=== PATIENT | female | born 1975 | race Caucasian/White ===

== ENCOUNTER 2023-01-09 16:53 | Outpatient (CLI) | payer OTHER, SELFPAY ==
--- NOTE | 2023-01-09 17:01 | XRR_ITS ---
PROCEDURE INFORMATION: Exam: XR Right Knee Exam date and time: 01/09/2023 5:08 PM Age: 47 years old Clinical indication: Pain; Knee; Right; Additional info: Right knee pain TECHNIQUE: Imaging protocol: Radiologic exam of the right knee. Views: 3 views. COMPARISON: No relevant prior studies available. FINDINGS: Bones/joints: No acute fracture, subluxation or dislocation. Mild narrowing of the medial compartment of the right knee. Soft tissues: Normal. XR/XR knee RT 3V* [id number] IMPRESSION: 1. No acute findings. 2. Mild narrowing of the medial compartment of the right knee.
== END 2023-01-09 16:54 | disposition home or self-care (01) ==
LOC: RAD 17:00
PROVIDERS: PCP Nurse Practitioner Family; Visit Provider Nurse Practitioner Family
DX: M25.561 Pain in right knee (principal)
CPT/HCPCS: 73562